=== PATIENT | male | born 2000 | race Caucasian/White ===

== ENCOUNTER 2020-03-05 22:31 | Emergency (ER) | payer BC ==
[2020-03-05] MEDS ORDERED: Metoclopramide HCl 10 MG/2 ML VIAL ONE (23:05)
[2020-03-05] MEDS ORDERED: diphenhydrAMINE 50 MG/ML VIAL ONE (23:05)
== END 2020-03-06 00:53 | disposition home or self-care (01) ==
LOC: ERS 22:31
DX: G44.009 Cluster headache syndrome, unspecified, not intractable (principal); F17.200 Nicotine dependence, unspecified, uncomplicated; Z79.899 Other long term (current) drug therapy
CPT/HCPCS: 96365; 96375; J1200; J2765